=== PATIENT | male | born 1955 | race Caucasian/White ===

== ENCOUNTER → 2018-12-31 | Outpatient (CLI) | payer BC ==
[~2018-12-31] MED LIST: IOPAMIDOL 370 MG/ML 200 ML INFUS..BTL INJ ONE; SODIUM CHLORIDE 0.9% 100 ML 100 ML ONE; SODIUM CHLORIDE 0.9% 250ML 250 ML ONE; SODIUM CHLORIDE 0.9% 500ML 500 ML ONE
[2018-12-31 14:20] LABS: CREATININE, SERUM 1.24 mg/dL (0.72-1.25)
--- NOTE | 2018-12-31 16:41 | Diagnostic Imaging Report ---
CT Abdomen, with contrast, 12/31/2018. History: Aortic aneurysm noted on outside ultrasound. Comparison: None available. Technique: Multidetector CT scanning of the abdomen was performed from the level of the lung bases to the iliac crests after intravenous administration of contrast. Coronal and sagittal multiplanar reformations were obtained. RADIATION DOSE: Total DLP: 289 mGy*cm Dose modulation, iterative reconstruction, and/or weight based adjustment of the mA/kV was utilized to reduce the radiation dose to as low as reasonably achievable. Discussion: Lung bases: No visualized abnormalities. Abdomen: The abdominal aorta is normal. The celiac trunk, SMA, and BRADY are patent. Single renal arteries are present bilaterally both of which are patent. The iliac vessels and proximal femoral arteries are normal. Maximal measurements of the aorta are as follows: 2.6 cm at the level of the diaphragmatic hiatus, 2.6 cm at the level of the celiac trunk, 2.6 cm at the level of the SMA, 2.3 cm at level of the renal arteries, and 1.9 cm just above the level of the bifurcation. There is diffuse nodularity of the liver surface contour without focal hepatic abnormality. The spleen is enlarged measuring over 14 cm in length. The gallbladder, biliary tree, spleen, pancreas, adrenal glands, and kidneys are normal. There is no bowel dilatation. Diverticuli are noted within the distal colon. There is no evidence of adenopathy or free fluid. A fat-containing umbilical hernia is present. Bones and soft tissues: Degenerative changes are present throughout the lumbar spine without evidence of lytic or sclerotic lesion. IMPRESSION: 1. No evidence of abdominal aortic aneurysm. 2. Cirrhotic appearing liver with splenomegaly. Correlate with LFTs. 3. Colonic diverticulosis partially visualized. Signed by: Jhonatan Marin on 12/31/2018 4:38 PM
== END ==
LOC: CT 13:32
PROVIDERS: ATTEND Internal Medicine Interventional Cardiology
DX: I71.4 Abdominal aortic aneurysm, without rupture (principal)
CPT/HCPCS: 36415; 74175; 82565; 84520; 96360; J7040; J7050; Q9967